=== PATIENT | female | born 1950 | race Caucasian/White ===

== ENCOUNTER 2016-11-02 11:33 | Emergency (ER) | payer MEDICARE, MEDICAID ==
--- NOTE | ~2016-11-02 | ER ---
[facility] 66 [facility] [address] ROOM: [place] [id number] LOCATION: ED ADMIT DATE: 11/02/2016 ER/Outpatient Report DISCHARGE DATE: 11/02/2016 FAMILY PHYSICIAN: Breanne Marie MD ATTENDING PHYSICIAN: Yariel Corea Time of Arrival: 1135 hours. Time of Evaluation: 1145 hours. CHIEF COMPLAINT: Dizziness. HISTORY OF PRESENT ILLNESS: The patient presents to the ER with a complaint of dizziness for the past 2 weeks. She states she has been having problems with dark colored stools up until 2 days ago. Two days ago, her stools started becoming more of a light cuadra brown in color. States she has had some generalized abdominal pain this morning. A crampy type pain in the lower abdomen, but it has gone at this time. She states she has been seen in the [facility] for blood pressure being high and recently got started on medicine. She said the blood pressure medicine has lowered her blood pressure but has not helped with her dizziness. She denies having any chest pain. She has not had a cough. She has not felt feverish. ALLERGIES: SHE HAS NO KNOWN ALLERGIES. CURRENT MEDICATIONS: On her chart and reviewed by me. PAST MEDICAL HISTORY: Hypertension, pernicious anemia. PAST SURGICAL HISTORY: Negative. SOCIAL HISTORY: She smokes a pack per day and has for the last 50 years. Denies use of drugs or alcohol. REVIEW OF SYSTEMS: All negative other than those mentioned in the HPI. PHYSICAL EXAMINATION: VITAL SIGNS: She weighs 42.7 kg, blood pressure is 177/81, pulse is 75, PATIENT'S NAME: MARTELL ÁLVAREZ [facility] AGE: 66 Y [address] ROOM: [place] [id number] LOCATION: ED ADMIT DATE: 11/02/2016 ER/Outpatient Report DISCHARGE DATE: 11/02/2016 FAMILY PHYSICIAN: Breanne Marie MD ATTENDING PHYSICIAN: Yariel Corea respirations 16, temperature of 98.8 tympanic, O2 saturation is 96% on room air. GENERAL: She is awake, alert, and oriented x4. Denies having any vision problems. During history taking information, she did lose track of the conversation and seemed easily distracted. HEENT: Pupils are equal and reactive to light. Extraocular movement is intact. SKIN: [address], warm, and dry. RESPIRATIONS: Even and nonlabored. Lung sounds are clear throughout. HEART: Regular rate and rhythm. ABDOMEN: Soft, nondistended. Bowel sounds are present. She denies any pain with deep palpation of the abdomen. EXTREMITIES: She moves all extremities strongly and equally. No peripheral edema is noted. EMERGENCY ROOM COURSE: Saline lock was initiated. Zofran 4 mg IV was given. LABORATORY DATA AND X-RAYS: Lab work was drawn. CBC is within normal limits. Hemoglobin was 13.3. Chem panel: Sodium was 135, potassium was 3.1, chloride was 102. Amylase was 51, lipase of 186. Lactate was 1.2. Procalcitonin was normal. Clean-catch UA showed 25 leukocytes. Micro shows negative bacteria. CT of the head was completed. Radiologist reports no acute abnormality. Does have some atrophy. Rectal exam was completed. The patient does have a large external hemorrhoid that is inflamed. No stool in the rectal vault noted. Hemoccult test was sent to the lab, was negative for blood. Orthostatic vital signs were done. Blood pressure lying 166/77 with pulse 64; sitting was 160/73, pulse was 70; standing was 165/74, pulse was 76. She did have some minimal dizziness with activity. She was given meclizine 25 mg p.o. and fluids of normal saline were started at a wide-open rate. The patient was given potassium 20 mEq p.o. I did call and talk with Millie Ho APRN, the patient's primary provider at the [facility]. Millie reports patient has been complaining of abdominal pain off and on, but the patient does not have any today. IMPRESSION: Dizziness. PLAN: Home, rest, fluids. Continue current medications. A prescription was written for meclizine. Millie Ho would like to see her on Tuesday11/09/2016 at 10:00 a.m. The patient is to call Millie sooner if symptoms persist. She verbalized understanding. PATIENT'S NAME: MARTELL ÁLVAREZ [facility] AGE: 66 Y [address] ROOM: [place] [id number] LOCATION: [facility] ADMIT DATE: 11/02/2016 ER/Outpatient Report DISCHARGE DATE: 11/02/2016 FAMILY PHYSICIAN: Breanne Marie MD ATTENDING PHYSICIAN: Yariel Corea TODD MAHAJAN APRN FOR MD ZOHAIB FRANCISCO/modl /[id number] d: 11/02/162201 t: 11/03/16 1306, OUTPATIENT REPORT
[2016-11-02 12:17] LABS: BILIRUBIN URINE NEGATIVE (NEGATIVE); BLOOD URINE 10 /UL (NEGATIVE); COLOR URINE YELLOW (YELLOW); GLUCOSE URINE NEGATIVE (NEGATIVE); KETONE URINE NEGATIVE (NEGATIVE); LEUKOCYTES URINE 25 /UL (NEGATIVE); NITRITE URINE NEGATIVE (NEGATIVE); PH URINE 6.5 (4.0-8.0); PROTEIN URINE 15 mg/dL (NEGATIVE); TURBIDITY URINE CLEAR (CLEAR); UROBILINOGEN URINE NORMAL (NORMAL)
[2016-11-02 12:19] LABS: BASOPHIL # 0.1 K/uL (0.0-0.2); BASOPHIL % 0.5 %; EOSINOPHIL # 0.1 K/uL (0.0-0.5); EOSINOPHIL % 0.6 %; HEMOGLOBIN 13.3 g/dL (10.0-15.0); IMMATURE GRANULOCYTE % 0.3 %; LYMPHOCYTE # 1.7 K/uL (0.8-4.0); LYMPHOCYTE % 17.4 %; MCH 31.8 pg (27.0-34.0); MCV 90.9 fl (83.0-98.0); MONOCYTE # 0.9 K/uL (0.0-1.0); MONOCYTE % 8.6 %; MPV 9.6 fl (9.4-12.4); NEUTROPHIL # (ANC) 7.1 K/uL (1.8-7.8); NEUTROPHIL % 72.6 %; NRBC % 0 /100WBC (0-0.00); PLATELET COUNT 254 K/uL (150-450); RBC 4.18 M/uL (3.50-5.50); RDW-CV 13.1 % (11.9-14.6); WBC 9.8 K/uL (4.0-11.0)
[2016-11-02 12:23] LABS: BACTERIA URINE NEGATIVE (NEGATIVE); EPITHELIAL URINE RARE #/HPF (NEGATIVE); RBC URINE 0-2 #/HPF (NEGATIVE); WBC URINE RARE #/HPF (NEGATIVE)
[2016-11-02 12:40] LABS: ALBUMIN 3.4 gm/dL (3.5-5.0); ALK PHOS 73 IU/L (33-138); ALT 17 IU/L (12-78); ANION GAP 11.1 (10.0-19.0); AST 14 IU/L (10-40); BLOOD UREA NITROGEN 3 mg/dL (6-24); CALCIUM 9.8 mg/dL (8.5-10.5); CHLORIDE 102 mMol/L (96-110); CO2 25 mMol/L (22-32); CREATININE 0.6 mg/dL (0.5-1.1); POTASSIUM 3.1 mMol/L (3.7-5.1); SODIUM 135 mMol/L (135-145); TOTAL BILIRUBIN 0.4 mg/dL (0.0-1.5); TOTAL PROTEIN 6.7 g/dL (6.0-8.4)
== END 2016-11-02 15:02 | disposition disaster alternative care site (69) ==
LOC: GMED 11:33
PROVIDERS: Nurse Practitioner Family
DX: R42 Dizziness and giddiness (principal); I10 Essential (primary) hypertension; D51.0 Vitamin B12 deficiency anemia due to intrinsic factor deficiency; F17.210 Nicotine dependence, cigarettes, uncomplicated; Z79.890 Hormone replacement therapy; Z79.899 Other long term (current) drug therapy
CPT/HCPCS: J2405; J7030